=== PATIENT | male | born 1965 | race Caucasian/White ===

== ENCOUNTER 2017-11-02 11:55 | Day surgery (SDC) | payer OTHER ==
[~2017-11-02] VITALS: Ht 175.3 cm; Wt 108.9 kg
[~2017-11-02 11:55] MED LIST: CLIN300C11 PO; DOCU-143 PO; L.AC1CAP6 PO; LIALDA; METR500T PO; OXYC-197 PO; OXYC-471; PRD10T; SULF-222; SULF1TAB35 PO
--- OUTSIDE RECORDS SUMMARY | 2017-11-02 12:01 | XMS REPORT | Continuity of Care Document ---
Author Author [facility] Organization [facility] Address Unknown Phone Unavailable Allergies Active Description Code Type Severity Reaction Onset Reported/Identified Relationship to Patient Clinical Status Yes aspirin [id number] Drug Allergy Unknown N/A 10/01/2006 Medications There is no data. Problems Date Dx Coded Attending Type Code Diagnosis Diagnosed By 09/05/2013 MARY KATE HOOPER MD Ot 721.3 09/05/2013 MARY KATE HOOPER MD Ot 722.52 09/05/2013 MARY KATE HOOPER MD Ot 726.5 09/05/2013 MARY KATE HOOPER MD Ot 756.12 09/05/2013 MARY KATE HOOPER MD Ot V58.69 09/06/2013 MARY KATE HOOPER MD Ot 724.2 09/06/2013 MARY KATE HOOPER MD Ot V57.1 12/01/2015 JUNIOR LEACH Ot F10.10 ALCOHOL ABUSE, UNCOMPLICATED 12/01/2015 JUNIOR LEACH Ot S86.222A LACERAT MUSC/TEND ANT GRP AT LOW LEG LEV 12/01/2015 JUNIOR LEACH Ot W29.3XXA CNTCT W POWERED GARDEN AND OUTDOOR HAND 12/01/2015 JUNIOR LEACH Ot Y90.6 BLOOD ALCOHOL LEVEL OF 120-199 MG/100 ML 12/01/2015 JUNIOR LEACH Ot Y99.8 OTHER EXTERNAL CAUSE STATUS 12/01/2015 JUNIOR LEACH Ot Z23 ENCOUNTER FOR IMMUNIZATION 12/01/2015 Ot 727.09 12/01/2015 TIN COOPER MD Ot 722.52 12/01/2015 TIN COOPER MD Ot 756.12 12/03/2015 JUNIOR LEACH Ot F10.10 12/03/2015 JUNIOR LEACH Ot S86.222A 12/03/2015 JUNIOR LEACH Ot W29.3XXA 12/03/2015 JUNIOR LEACH Ot Y90.6 12/03/2015 JUNIOR LEACH Ot Y99.8 12/03/2015 JUNIOR LEACH Ot Z23 12/11/2015 EZ WHITAKER MD Ot K52.1 12/11/2015 EZ WHITAKER MD Ot K52.1 12/19/2015 EZ WHITAKER MD Ot K52.1 Procedures There is no data. Results There is no data. Encounters ACCT No. Visit Date/Time Discharge Status Pt. Type Provider Facility Loc./Unit Complaint [id number] 12/07/2015 13:44:00 12/07/2015 15:38:00 DIS Emergency EZ WHITAKER MD [facility] ER [id number] 12/01/2015 16:57:00 12/01/2015 21:52:00 DIS Emergency JUNIOR LEACH [facility] ER [id number] 09/06/2013 08:01:00 09/06/2013 09:02:00 DIS Outpatient MARY KATE HOOPER MD [facility] REHAB [id number] 09/05/2013 12:49:00 09/05/2013 14:23:00 DIS Outpatient MARY KATE HOOPER MD [facility] CARD [id number] 07/13/2013 13:36:00 07/13/2013 23:59:59 CLS Outpatient TIN COOPER MD [facility] RAD [id number] 08/10/2012 10:36:00 Document Registration
[2017-11-02] MEDS ORDERED: FAMOTIDINE 20 MG (PEPCID) TABLET PO STA (12:46)
[2017-11-02] MEDS ORDERED: LACTATED RINGERS 1,000 ML IV ONE (12:46)
--- NOTE | 2017-11-02 12:54 | ED Chest Pain ---
General Chief Complaint: Chest Pain Stated Complaint: CHEST PAIN Nursing Triage Note: PT C/O CHEST PAIN X 1 MONTH. HE IS ALSO C/O DIAPHORESIS AND INTERMITTENT DYSPNEA. HE DOES REPORT HX OF ACID REFLUX. Nursing Sepsis Screen: No Definite Risk Source: patient, other Exam Limitations: no limitations History of Present Illness Date Seen by Provider: Nov 02, 2017 Time Seen by Provider: 12:30 Initial Comments Patient presents to the ER by private conveyance with a chief complaint that for the last month he is having intermittent chest pains last for a few minutes at a time on the left side of his chest sometimes radiated to his left armpit and into his left trapezius. He is not having any nausea, chills, fever that he has occasionally had some sweats with him. He has not taken anything for them. He thought they might be acid reflux. He has an allergy to aspirin. He does not have a history personally of heart disease however he has an extensive family history of father and brother having heart attacks right around age 50. 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 He does not have high blood pressure, cholesterol, hypothyroidism, diabetes. Allergies and Home Medications Allergies Coded Allergies: Aspirin (Verified Allergy, Unknown, 10/01/06) Home Medications Clindamycin HCl 300 Mg Capsule, 300 MG PO QID Prescribed by: EZ SILVA on 12/01/152050 Docusate Sodium 100 Mg Capsule, 100 MG PO BID PRN for CONSTIPATION Prescribed by: EZ SILVA on 12/01/152050 L.acidoph & Paracasei,B.lactis 1 Each Capsule, 1 EACH PO TID Prescribed by: EZ SILVA on 12/07/151436 Metronidazole 500 Mg Tablet, 500 MG PO TID Prescribed by: EZ SILVA on 12/07/151436 Oxycodone HCl/Acetaminophen 1 Each Tablet, 1-2 EACH PO Q4H Prescribed by: EZ SILVA on 12/01/152050 Sulfamethoxazole/Trimethoprim 1 Each Tablet, 1 EACH PO BID Prescribed by: EZ SILVA on 12/01/152050 Review of Systems Constitutional: No chills, No diaphoresis, No fever EENTM: No Blurred Vision, No Double Vision Respiratory: Denies Cough, Denies Shortness of Air Cardiovascular: See HPI, Chest Pain, Denies Irregular Heart Rate, Denies Palpitations, Denies Syncope Gastrointestinal: Denies Abdomen Distended Genitourinary: Denies Burning, Denies Discharge Musculoskeletal: No back pain, No joint pain Skin: No pruritus, No rash Psychiatric/Neurological: Denies Headache, Denies Numbness Past Pfltvyv-Hepdwz-Ueyenn Hx Patient Social History Alcohol Use: Occasionally Uses Alcohol Beverage of Choice: Beer (12 pack every 3-4 days) Recreational Drug Use: No Smoking Status: Never a Smoker Type Used: Smokeless Tobacco 2nd Hand Smoke Exposure: No Recent Foreign Travel: No Contact w/Someone Who Travel: No Recent Infectious Disease Expo: No Recent Hopitalizations: No Seasonal Allergies Seasonal Allergies: No Surgeries History of Surgeries: Yes Surgeries: Orthopedic Respiratory History of Respiratory Disorde: No Cardiovascular History of Cardiac Disorders: No Neurological History of Neurological Disord: No Gastrointestinal History of Gastrointestinal Di: Yes Gastrointestinal Disorders: Colitis Musculoskeletal History of Musculoskeletal Dis: Yes (traumatic wound to the left lower extremity from chainsaw) Endocrine History of Endocrine Disorders: No Cancer History of Cancer: No Psychosocial History of Psychiatric Problem: No Physical Exam Vital Signs Vital Signs - First Documented 11/02/17 12:21 Temp 98.1 Pulse 79 Resp 11 B/P (MAP) 138/94 (109) Pulse Ox 97 O2 Delivery Room Air Capillary Refill : Less Than 3 Seconds General Appearance: No Apparent Distress, WD/WN HEENT: PERRL/EOMI, Normal ENT Inspection, Pharynx Normal (oral mucosa is moist) Neck: Full Range of Motion, Non Tender, Supple Respiratory: Chest Non Tender, Lungs Clear, Normal Breath Sounds, No Accessory Muscle Use, No Respiratory Distress Cardiovascular: Regular Rate, Rhythm, No Edema, Normal Peripheral Pulses Gastrointestinal: Normal Bowel Sounds, Non Tender, Soft Extremity: Normal Capillary Refill, Normal Inspection, No Pedal Edema Neurologic/Psychiatric: Alert, Oriented x3 Skin: Normal Color, Warm/Dry Progress/Results/Core Measures Results/Orders Lab Results Laboratory Tests Test 11/02/17 12:10 Range/Units White Blood Count 3.0 L 4.3-11.0 10^3/uL Red Blood Count 3.83 L 4.35-5.85 10^6/uL Hemoglobin 15.4 13.3-17.7 G/DL Hematocrit 40 40-54 % Mean Corpuscular Volume 105 H 80-99 FL Mean Corpuscular Hemoglobin 40 H 25-34 PG Mean Corpuscular Hemoglobin Concent 38 H 32-36 G/DL Red Cell Distribution Width 13.8 10.0-14.5 % Platelet Count 173 130-400 10^3/uL Mean Platelet Volume 8.7 7.4-10.4 FL Neutrophils (%) (Auto) 53 42-75 % Lymphocytes (%) (Auto) 32 12-44 % Monocytes (%) (Auto) 12 0-12 % Eosinophils (%) (Auto) 1 0-10 % Basophils (%) (Auto) 1 0-10 % Neutrophils # (Auto) 1.6 L 1.8-7.8 X 10^3 Lymphocytes # (Auto) 1.0 1.0-4.0 X 10^3 Monocytes # (Auto) 0.4 0.0-1.0 X 10^3 Eosinophils # (Auto) 0.0 0.0-0.3 10^3/uL Basophils # (Auto) 0.0 0.0-0.1 10^3/uL Prothrombin Time 13.7 12.2-14.7 SEC INR Comment 1.0 0.8-1.4 Activated Partial Thromboplast Time 30 24-35 SEC Sodium Level 141 135-145 MMOL/L Potassium Level 4.4 3.6-5.0 MMOL/L Chloride Level 109 H 98-107 MMOL/L Carbon Dioxide Level 21 21-32 MMOL/L Anion Gap 11 5-14 MMOL/L Blood Urea Nitrogen 10 7-18 MG/DL Creatinine 0.97 0.60-1.30 MG/DL Estimat Glomerular Filtration Rate > 60 BUN/Creatinine Ratio 10 Glucose Level 176 H 70-105 MG/DL Calcium Level 9.0 8.5-10.1 MG/DL Magnesium Level 2.1 1.8-2.4 MG/DL Total Bilirubin 0.9 0.1-1.0 MG/DL Aspartate Amino Transf (AST/SGOT) 146 H 5-34 U/L Alanine Aminotransferase (ALT/SGPT) 289 H 0-55 U/L Alkaline Phosphatase 57 40-136 U/L Myoglobin 64.8 10.0-92.0 NG/ML Troponin I < 0.30 <0.30 NG/ML Total Protein 6.9 6.4-8.2 GM/DL Albumin 4.2 3.2-4.5 GM/DL Lipase 51 8-78 U/L My Orders Orders - MISAEL TARANGO Ekg Tracing (11/02/17 12:03) Continuous Ekg Monitoring (11/02/17 12:03) Cbc With Automated Diff (11/02/17 12:46) Magnesium (11/02/17 12:46) Chest 1 View, Ap/Pa Only (11/02/17 12:46) Cardiac Profile 1 (11/02/17 12:46) Comprehensive Metabolic Panel (11/02/17 12:46) Myoglobin Serum (11/02/17 12:46) Protime With Inr (11/02/17 12:46) Partial Thromboplastin Time (11/02/17 12:46) O2 (11/02/17 12:46) Monitor-Rhythm Ecg Trace Only (11/02/17 12:46) Lipid Panel (11/03/17 06:00) Saline Lock/Iv-Start (11/02/17 12:46) Lipase (11/02/17 12:46) Saline Lock/Iv-Start (11/02/17 12:46) Lactated Ringers (Lr 1000 Ml Iv Solution (11/02/17 12:46) Lidocaine 2% Viscous 15 Ml (Xylocaine Vi (11/02/17 13:00) Famotidine Tablet (Pepcid Tablet) (11/02/17 12:46) Antacid Suspension (Mylanta Suspension (11/02/17 13:00) Vital Signs/I&O Vital Sign - Last 12Hours 11/02/17 11/02/17 12:21 12:21 Temp 98.1 Pulse 79 Resp 11 B/P (MAP) 138/94 (109) Pulse Ox 97 O2 Delivery Room Air Room Air Blood Pressure Mean: 109 Progress Note #1: Time: 12:52 Progress Note ED ACS score is 20 which is not low risk and would recommend if the normal troponin and EKG initially present that he should do a serial troponin observation stay. Patient is not having any pain presently so were not given any nitroglycerin. He has an allergy to aspirin. Coronary catheterization by Dr. Lal 2006 showing nonobstructive disease of the coronaries. Normal left ventricular size and systolic function with an EF of 60% Echocardiogram from [address] Lal reveals normal left ventricular size and systolic function with an EF of 60%. Trace your dictation of the tricuspid with an estimated pulmonary artery pressure of 15-20 mmHg. Progress Note #2: Time: 13:49 Progress Note Elevated glucose told to question the possibility of diabetes. Elevated transaminases may relate to liver disease. Considering he admits to drinking a 12 pack every 3-4 days could be alcohol related versus diabetes versus chronic viral however probably does not directly relate to his current symptoms. ECG Initial ECG Impression Date: Nov 02, 2017 Initial ECG Impression Time: 12:05 Initial ECG Rate: 77 Initial ECG Rhythm: Normal Sinus Initial ECG Intervals: QRS (140) Initial ECG Impression: Normal, Nonspecific Changes (rbbb) Diagnostic Imaging Diagonstic Imaging: Xray Plain Films/CT/US/NM/MRI: chest (1v) [facility] [place], [place] NAME: SAMIR CAMPOS [facility] REC#: [id number] PT STATUS: REG ER : 1965 PHYSICIAN: MISAEL TARANGO MD ADMIT DATE: 11/02/17/ER Draft Date of Exam:11/02/17 CHEST 1 VIEW, AP/PA ONLY INDICATION: Chest pain. COMPARISON: None. FINDINGS: Single frontal view of the chest demonstrates normal heart size and pulmonary vascularity. The lungs show low inspiratory volumes, but are otherwise clear. No large pleural effusion or pneumothorax is seen. The visualized osseous structures show no acute abnormalities. IMPRESSION: 1. Low lung volumes, but otherwise no acute cardiopulmonary process. Dictated on workstation # [id number] Dict: 11/02/17 1304 Trans: 11/02/17 1315 SUNNY [id number] Interpreted by: NENA LENTZ MD Electronically signed by: Reviewed: Reviewed by Me Departure Communication (Admissions) Time/Spoke to Admitting Phy: 13:[address] Seymour; discussed case lab imaging findings possibility of diabetes and elevated transaminases may be related to his ulcerative colitis medicine versus alcohol versus diabetes versus other. Discussed observation stay for chest pain and cardiac risk factors. Time/Spoke to Consulting Phy: 14:00 Communication/Consulting Dr. Valera; discussed case lab imaging EKG and findings. Plan to do an observation stay. His risk factors. He agrees and will see the patient. He recommends Toprol-XL 50 mg daily. Impression Impression: Primary Impression: Chest pain Qualified Codes: R07.9 - Chest pain, unspecified Additional Impressions: Elevated transaminase level Hyperglycemia Disposition: ADMITTED INPATIENT Condition: Stable Admissions Decision to Admit Reason: Admit from ER (General) Decision to Admit/Date: Nov 02, 2017 Time/Decision to Admit Time: 12:56 Departure-Patient Inst. Referrals: TIN COOPER MD (PCP/Family) Primary Care Physician Copy Copies To 1: CARMINE GOLDBERG MD FACP FACC CCDS; TIN COOPER MD, TITUS J Nov 02, 2017 12:54
[2017-11-02 12:55] LABS: BASOPHILS % (AUTO) 1 % (0-10); EOSINOPHILS % (AUTO) 1 % (0-10); HEMATOCRIT 40 % (40-54); HEMOGLOBIN 15.4 G/DL (13.3-17.7); LYMPHOCYTES % (AUTO) 32 % (12-44); MEAN CORPUSCULAR HEMOGLOBIN 40 PG (25-34); MEAN CORPUSCULAR HGB CONC 38 G/DL (32-36); MEAN CORPUSCULAR VOLUME 105 FL (80-99); MEAN PLATELET VOLUME 8.7 FL (7.4-10.4); MONOCYTES # (AUTO) 0.4 X 10^3 (0.0-1.0); MONOCYTES % (AUTO) 12 % (0-12); NEUTROPHILS # (AUTO) 1.6 X 10^3 (1.8-7.8); NEUTROPHILS % (AUTO) 53 % (42-75); PLATELET COUNT 173 10^3/uL (130-400); RED BLOOD COUNT 3.83 10^6/uL (4.35-5.85); RED CELL DISTRIBUTION WIDTH 13.8 % (10.0-14.5)
[2017-11-02] MEDS ORDERED: LIDOCAINE 2% VISCOUS 15 ML UDC PO ONE (13:00)
[2017-11-02] MEDS ORDERED: ANTACID SUSP 30 ML UDC (MYLANTA) PO ONE (13:00)
[2017-11-02 13:01] LABS: PROTHROMBIN TIME PATIENT 13.7 SEC (12.2-14.7)
[2017-11-02 13:09] LABS: ALANINE AMINOTRANSFERASE 289 U/L (0-55); ALBUMIN 4.2 GM/DL (3.2-4.5); ALKALINE PHOSPHATASE 57 U/L (40-136); BILIRUBIN,TOTAL 0.9 MG/DL (0.1-1.0); BUN/CREATININE RATIO 10; CARBON DIOXIDE 21 MMOL/L (21-32); CHLORIDE 109 MMOL/L (98-107); CREATININE SERUM 0.97 MG/DL (0.60-1.30); GFR ESTIMATED > 60; GLUCOSE 176 MG/DL (70-105); LIPASE 51 U/L (8-78); MAGNESIUM 2.1 MG/DL (1.8-2.4); POTASSIUM 4.4 MMOL/L (3.6-5.0); SODIUM 141 MMOL/L (135-145); TOTAL PROTEIN 6.9 GM/DL (6.4-8.2)
[2017-11-02 13:15] LABS: MYOGLOBIN SERUM 64.8 NG/ML (10.0-92.0)
--- NOTE | 2017-11-02 13:16 | Diagnostic Imaging Report ---
INDICATION: Chest pain. COMPARISON: None. FINDINGS: Single frontal view of the chest demonstrates normal heart size and pulmonary vascularity. The lungs show low inspiratory volumes, but are otherwise clear. No large pleural effusion or pneumothorax is seen. The visualized osseous structures show no acute abnormalities. IMPRESSION: 1. Low lung volumes, but otherwise no acute cardiopulmonary process. Dictated by: Dictated on workstation # [id number]
[2017-11-02] MEDS ORDERED: meTOproloL SUCCINATE 50 MG (TOPROL XL) TAB PO SCH (14:15)
--- OUTSIDE RECORDS SUMMARY | 2017-11-02 14:16 | XMS REPORT | Continuity of Care Document ---
Author Author [facility] Organization [facility] Address Unknown Phone Unavailable Allergies Active Description Code Type Severity Reaction Onset Reported/Identified Relationship to Patient Clinical Status Yes aspirin [id number] Drug Allergy Unknown N/A 10/01/2006 Medications There [...] 12/03/2015 JUNIOR LEACH Ot S86.222A 12/03/2015 JUNIOR ELACH Ot W29.3XXA 12/03/2015 JUNIOR LEACH Ot Y90.6 12/03/2015 JENNIFER LEACHEN Tisha Ot Y99.8 12/03/2015 JENNIFER LEACHEN Tisha Ot Z23 12/11/2015 SHERMAN ROCK, EZ Magallon Ot K52.1 12/11/2015 SHERMAN ROCK, EZ Magallon Ot K52.1 12/19/2015 SHERMAN ROCK, EZ Magallon Ot K52.1 Procedures There is no data. Results Test Result Range Complete blood count (CBC) with automated white blood cell (WBC) differential - 11/02/17 12:10 Blood leukocytes automated count (number/volume) 3.0 10*3/uL 4.3-11.0 Blood erythrocytes automated count (number/volume) 3.83 10*6/uL 4.35-5.85 Venous blood hemoglobin measurement (mass/volume) 15.4 g/dL 13.3-17.7 Blood hematocrit (volume fraction) 40 % 40-54 Automated erythrocyte mean corpuscular volume 105 [foz_us] 80-99 Automated erythrocyte mean corpuscular hemoglobin (mass per erythrocyte) 40 pg 25-34 Automated erythrocyte mean corpuscular hemoglobin concentration measurement ( mass/volume) 38 g/dL 32-36 Automated erythrocyte distribution width ratio 13.8 % 10.0-14.5 Automated blood platelet count (count/volume) 173 10*3/uL 130-400 Automated blood platelet mean volume measurement 8.7 [foz_us] 7.4-10.4 Automated blood neutrophils/100 leukocytes 53 % 42-75 Automated blood lymphocytes/100 leukocytes 32 % 12-44 Blood monocytes/100 leukocytes 12 % 0-12 Automated blood eosinophils/100 leukocytes 1 % 0-10 Automated blood basophils/100 leukocytes 1 % 0-10 Blood neutrophils automated count (number/volume) 1.6 10*3 1.8-7.8 Blood lymphocytes automated count (number/volume) 1.0 10*3 1.0-4.0 Blood monocytes automated count (number/volume) 0.4 10*3 0.0-1.0 Automated eosinophil count 0.0 10*3/uL 0.0-0.3 Automated blood basophil count (count/volume) 0.0 10*3/uL 0.0-0.1 PT panel in platelet poor plasma by coagulation assay - 11/02/17 12:10 Prothrombin time (PT) in platelet poor plasma by coagulation assay 13.7 s 12.2-14.7 INR in platelet poor plasma or blood by coagulation assay 1.0 0.8-1.4 Activated partial thromboplastin time (aPTT) in platelet poor plasma bycoagulation assay - 11/02/17 12:10 Activated partial thromboplastin time (aPTT) in platelet poor plasma bycoagulation assay 30 s 24-35 Comprehensive metabolic panel - 11/02/17 12:10 Serum or plasma sodium measurement (moles/volume) 141 mmol/L 135-145 Serum or plasma potassium measurement (moles/volume) 4.4 mmol/L 3.6-5.0 Serum or plasma chloride measurement (moles/volume) 109 mmol/L 98-107 Carbon dioxide 21 mmol/L 21-32 Serum or plasma anion gap determination (moles/volume) 11 mmol/L 5-14 Serum or plasma urea nitrogen measurement (mass/volume) 10 mg/dL 7-18 Serum or plasma creatinine measurement (mass/volume) 0.97 mg/dL 0.60-1.30 Serum or plasma urea nitrogen/creatinine mass ratio 10 NRG Serum or plasma creatinine measurement with calculation of estimated glomerular filtration rate > NRG Serum or plasma glucose measurement (mass/volume) 176 mg/dL 70-105 Serum or plasma calcium measurement (mass/volume) 9.0 mg/dL 8.5-10.1 Serum or plasma total bilirubin measurement (mass/volume) 0.9 mg/dL 0.1-1.0 Serum or plasma alkaline phosphatase measurement (enzymatic activity/volume) 57 U/L 40-136 Serum or plasma aspartate aminotransferase measurement (enzymatic activity/ volume) 146 U/L 5-34 Serum or plasma alanine aminotransferase measurement (enzymatic activity/volume ) 289 U/L 0-55 Serum or plasma protein measurement (mass/volume) 6.9 g/dL 6.4-8.2 Serum or plasma albumin measurement (mass/volume) 4.2 g/dL 3.2-4.5 Magnesium - 11/02/17 12:10 Magnesium 2.1 mg/dL 1.8-2.4 Serum or plasma troponin i.cardiac measurement (mass/volume) - 11/02/17 12:10 Serum or plasma troponin i.cardiac measurement (mass/volume) < ng/ mL <0.30 Myoglobin, serum - 11/02/17 12:10 Myoglobin, serum 64.8 ng/mL 10.0-92.0 Lipase - 11/02/17 12:10 Lipase 51 U/L 8-78 Encounters ACCT No. Visit Date/Time Discharge Status Pt. Type Provider Facility Loc./Unit Complaint [id number] 12/07/2015 13:44:00 12/07/2015 15:38:00 DIS Emergency SHERMAN ROCK, EZ Magallon [facility] ER [id number] 12/01/2015 16:57:00 12/01/2015 21:52:00 DIS Emergency JUNIOR LEACH [facility] ER [id number] 09/06/2013 08:01:00 09/06/2013 09:02:00 DIS Outpatient MARY KATE HOOPER MD [facility] REHAB [id number] 09/05/2013 12:49:00 09/05/2013 14:23:00 DIS Outpatient MARY KATE HOOPER MD [facility] CARD [id number] 07/13/2013 13:36:00 07/13/2013 23:59:59 CLS Outpatient KENNETH ROCK, TIN Lozano [facility] RAD [id number] 11/02/2017 12:56:00 Document Registration [id number] 08/10/2012 10:36:00 Document Registration
--- NOTE | 2017-11-02 15:09 | History & Physical-Hospitalist ---
HPI History of Present Illness: HPI/Chief Complaint Pt is a 52yoCM with a PMH of ulcerative colitis who presents to the ER with CC of chest pain. He reports his symptoms started 1 month ago and he thought he had pulled a muscle. He has central chest pain that lasts a few minutes and will recur 3-5x throughout the day. He denies any SOB, nausea, diaphoresis, or radiation of the pain during these episodes. He reports they come on randomly and are no associated with exertion. He felt it may be due to heart burn. Nothing worsened today he just told his how long his pain had been occurring and she prompted him to seek evaluation in the ER. Source: patient Date Seen 11/02/17 Time Seen by Provider: 14:50 Attending Physician Roxanna Seymour MD PCP Moises Crowell MD Referring Physician Date of Admission Nov 02, 2017 at 14:05 Home Medications & Allergies Home Medications Reviewed patient Home Medication Reconciliation Form Allergies Allergies Coded Allergies aspirin (Verified Allergy, Unknown, 10/01/06) Past Hdymivg-Uqyvzs-Yyxdxh Hx Patient Social History Marrital Status: Employed/Student: employed Alcohol Use: Occasionally Uses Alcohol Beverage of Choice: Beer (12 pack per day when not working) Recreational Drug Use: No Smoking Status: Never a Smoker Type Used: Smokeless Tobacco 2nd Hand Smoke Exposure: No Recent Foreign Travel: No Contact w/other who traveled: No Recent Hopitalizations: No Recent Infectious Disease Expo: No Seasonal Allergies Seasonal Allergies: No Surgeries Yes Orthopedic Respiratory No Cardiovascular No Neurological No Gastrointestinal Yes Colitis (ulcerative colitis) Musculoskeletal Yes (traumatic wound to the left lower extremity from chainsaw) Endocrine History of Endocrine Disorders: No HEENT History of HEENT Disorders: No Cancer No Psychosocial History of Psychiatric Problem: No Family Medical History Significant Family History: Heart Disease, CAD Under 55 Years Old, CAD Over 55 Years Old, Hypertension Review of Systems Constitutional: No chills, No fever EENTM: No blurred vision, No double vision, No nose congestion, No throat pain Respiratory: No cough, No dyspnea on exertion, No short of breath Cardiovascular: chest pain, No edema, No Hx of Intervention, No palpitations, No syncope Gastrointestinal: No abdominal pain, No constipation, No diarrhea, No nausea, No vomiting Genitourinary: No dysuria, No frequency Musculoskeletal: No joint pain, No muscle pain Skin: No lesions, No rash Psychiatric/Neurological: Denies Anxiety, Denies Depressed, Denies Headache, Denies Numbness, Denies Tingling Physical Exam Physical Exam Vital Signs Vital Signs - First Documented 11/02/17 11/02/17 12:21 13:10 Temp 98.1 Pulse 79 Resp 11 B/P (MAP) 138/94 (109) Pulse Ox 97 O2 Delivery Room Air O2 Flow Rate 2.00 Capillary Refill : Less Than 3 Seconds General Appearance: No Apparent Distress, WD/WN, Obese HEENT: PERRL/EOMI, Moist Mucous Membranes, No Scleral Icterus (L), No Scleral Icterus (R) Neck: Non Tender, Supple Respiratory: Lungs Clear, No Respiratory Distress Cardiovascular: Regular Rate, Rhythm, No Murmur Gastrointestinal: Normal Bowel Sounds, Non Tender, Soft Extremity: Normal Capillary Refill, No Calf Tenderness Neurologic/Psychiatric: Alert, Oriented x3, Normal Mood/Affect Skin: Normal Color, Warm/Dry Results Results/Procedures Lab Laboratory Tests 11/02/17 12:10 Assessment/Plan Admission Diagnosis chest pain Admission Status: Observation Diagnosis/Problems Diagnosis/Problems (1) Chest pain Status: Acute Assessment & Plan: Will admit for obs for ACS rule out Troponin negative Will trend Monitor on Tele Has ASA allergy so unable to give Cardiology consulted, appreciate recs FLP ordered Qualifiers: Qualified Codes: R07.9 - Chest pain, unspecified (2) Alcohol abuse Assessment & Plan: Drinks 12pack per day when not working Can go 3-5 days without drinking without withdrawal (3) Tobacco use disorder Assessment & Plan: Chews tobacco Recommended cessation (4) Elevated transaminase level Status: Acute Assessment & Plan: Likely due to alcohol abuse will trend (5) Hyperglycemia Status: Acute Assessment & Plan: Trend, no known diagnosis of diabetes Will check a1c Clinical Quality Measures AMI/AHF: ASA po Prior to arrival: ROXANNA Gongora MD Nov 02, 2017 3:09 pm
[2017-11-02 15:14] VITALS: BP 147/71
[2017-11-02] MEDS ORDERED: NITROGLYCERIN 0.4 MG SL TABS BTL 25'S SL PRN (15:15)
[2017-11-02] MEDS ORDERED: CATHETER FLUSH 10 ML SYR IV PRN (15:15)
[2017-11-02 15:55] LABS: CHOLESTEROL 239 MG/DL (< 200); HDL CHOLESTEROL 45 MG/DL (40-60); TRIGLYCERIDES 205 MG/DL (<150); VLDL CHOLESTEROL 41 MG/DL (5-40)
[2017-11-02] MEDS ORDERED: INFLUENZA TRIvalent 2017-2018 0.5 ML/45 MCG SYR IM ONE (16:00)
[2017-11-02] MEDS: inSUlin ASPART (NovoLOG) 1 UNIT/0.01 ML (CHARGE PER UNIT) SC SCH ×2 (16:05→20:48)
[2017-11-02] MEDS: lisINopril 5 MG (PRINIVIL) TABLET PO SCH (16:05)
--- NOTE | 2017-11-02 18:06 | Consultation-Cardiology ---
HPI-Cardiology Cardiology Consultation: Date of Consultation 11/02/17 Time Seen by Provider: 18:00 Date of Admission Attending Physician Carolina Seymour MD Admitting Physician Moises Crowell MD Consulting Physician CARMINE GOLDBERG MD, MA, FACP, FACC, FSCAI, CCDS HPI: Chief Complaint: Chest discomfort HPI 52 yo man with chest discomfort: Onset: 1-2 months Location: L parasternum Radiation: none Frequency: Daily Duration of symptoms: a few min Correlation with exertion: none Aggravating or relieving factors: none Character of discomfort: sharp Intensity of discomfort: mild to mod Denies palp or syncope or shortness of breath or leg swelling Review of Systems-Cardiology Review of Systems Constitutional: No malaise, No weight loss, No weight gain Eyes: No vision change Ears/Nose/Throat: No epistaxis, No nasal drainage, No recent hearing loss Respiratory: As described under HPI Cardiovascular: As described under HPI Gastrointestinal: No constipation, No diarrhea, No nausea, No vomiting Genitourinary: No dysuria, No hematuria, No urine frequency changes Musculoskeletal: No back pain Skin: No rash, No ulcerations Psychiatric/Neurological: No seizure, No focal weakness Hematologic: No bleeding abnormalities [id number] Hx Patient Social History Marrital Status: Employed/Student: employed Alcohol Use: Regular Use Recreational Drug Use: No Smoking Status: Never a Smoker Type Used: Smokeless Tobacco 2nd Hand Smoke Exposure: No Recent Foreign Travel: No Recent Infectious Disease Expo: No Hospitalization with Isolation: Denies Physical Abuse Screen: No Sexual Abuse: No Past Medical History PMH As described under Assessment. Family Medical History Family Medical History: Brother had a coronary stent in his ray 50s Family History: Arthritis Cardiovascular disease Hypertension Myocardial infarction Respiratory disorder Allergies and Home Medications Allergies Coded Allergies: aspirin (Verified Allergy, Unknown, 10/01/06) Home Medications Clindamycin HCl 300 Mg Capsule, 300 MG PO QID Prescribed by: EZ SILVA on 12/01/152050 Docusate Sodium 100 Mg Capsule, 100 MG PO BID PRN for CONSTIPATION Prescribed by: EZ SILVA on 12/01/152050 L.acidoph & Paracasei,B.lactis 1 Each Capsule, 1 EACH PO TID Prescribed by: EZ SILVA on 12/07/15 1437 Metronidazole 500 Mg Tablet, 500 MG PO TID Prescribed by: EZ SILVA on 12/07/151436 Oxycodone HCl/Acetaminophen 1 Each Tablet, 1-2 EACH PO Q4H Prescribed by: EZ SILVA on 12/01/152050 Sulfamethoxazole/Trimethoprim 1 Each Tablet, 1 EACH PO BID Prescribed by: EZ SILVA on 12/01/152050 Physical Exam-Cardiology Physical Exam Vital Signs/I&O Vital Sign - Last 12Hours 11/02/17 11/02/17 11/02/17 11/02/17 12:21 12:21 13:10 15:14 Temp 98.1 99.0 Pulse 79 62 Resp 11 20 B/P (MAP) 138/94 (109) 147/71 (96) Pulse Ox 97 98 98 O2 Delivery Room Air Room Air Nasal Cannula Room Air O2 Flow Rate 2.00 11/02/17 16:53 Pulse Ox 96 O2 Delivery Room Air Capillary Refill : Less Than 3 Seconds Constitutional: AAO x 3, well-developed, well-nourished HEENT: oral hygience is good, No xanthelasmas are seen Neck: No carotid bruit, carotid pulses are 2 + bilaterally, with good upstrokes Respiratory: No accessory muscle use, lungs clear to percussion, lungs clear to auscultation Cardiovascular: regular rate-rhythm, S1 and S2, systolic murmur (faint JAILENE at card base) Gastrointestinal: No tender, soft, No guarding, No rebound, audible bowel sounds Extremities: No clubbing, No cyanosis, No significant edema Skin: No rash on exposed areas, No ulcerations on exposed areas Data Review Labs Laboratory Tests 11/02/17 12:10: White Blood Count 3.0L, Red Blood Count 3.83L, Hemoglobin 15.4, Hematocrit 40, Mean Corpuscular Volume 105H, Mean Corpuscular Hemoglobin 40H, Mean Corpuscular Hemoglobin Concent 38H, Red Cell Distribution Width 13.8, Platelet Count 173, Mean Platelet Volume 8.7, Neutrophils (%) (Auto) 53, Lymphocytes (%) (Auto) 32, Monocytes (%) (Auto) 12, Eosinophils (%) (Auto) 1, Basophils (%) (Auto) 1, Neutrophils # (Auto) 1.6L, Lymphocytes # (Auto) 1.0, Monocytes # (Auto) 0.4, Eosinophils # (Auto) 0.0, Basophils # (Auto) 0.0, Prothrombin Time 13.7, INR Comment 1.0, Activated Partial Thromboplast Time 30, Sodium Level 141, Potassium Level 4.4, Chloride Level 109H, Carbon Dioxide Level 21, Anion Gap 11 , Blood Urea Nitrogen 10, Creatinine 0.97, Estimat Glomerular Filtration Rate > 60, BUN/Creatinine Ratio 10, Glucose Level 176H, Calcium Level 9.0, Magnesium Level 2.1, Total Bilirubin 0.9, Aspartate Amino Transf (AST/SGOT) 146H, Alanine Aminotransferase (ALT/SGPT) 289H, Alkaline Phosphatase 57, Myoglobin 64.8, Troponin I < 0.30, Total Protein 6.9, Albumin 4.2, Triglycerides Level 205H, Cholesterol Level 239H, LDL Cholesterol Direct 149H, VLDL Cholesterol 41H, HDL Cholesterol 45, Lipase 51 11/02/17 16:04: Glucometer 119H 11/02/17 17:50: Laboratory Tests 11/02/17 12:10 A/P-Cardiology Assessment/Admission Diagnosis Nonspecific chest discomfort Hyperglycemia (nonfasting) Obesity with BMI approx 35 Fam h/o early CAD Mild leucopenia Admission Status: Observation Discussion and Recomendations * Given nonspecific symptoms in the presence of multiple cor risk factors, we recommend MPI for cor risk strat and echo to eval for structural heart disease * We will base further recs on the results of above studies * Eval of leucopenia and hyperglycemia is with the [facility] Clinical Quality Measures AMI/AHF: ASA po Prior to arrival: CARMINE Mcdonald MD FACP FAC CCDS Nov 02, 2017 18:06
[2017-11-02 20:00] VITALS: BP 136/84
[2017-11-02] MEDS: CATHETER FLUSH 10 ML SYR IV SCH (20:47)
[2017-11-02] MEDS ORDERED: ATORVASTATIN 40 MG (LIPITOR) TABLET PO SCH (21:00)
[2017-11-03] VITALS (7 sets, daily range): BP systolic 102–133; BP diastolic 52–83
[2017-11-03] MEDS: inSUlin ASPART (NovoLOG) 1 UNIT/0.01 ML (CHARGE PER UNIT) SC SCH ×4 (05:18→21:15)
[2017-11-03] MEDS: CATHETER FLUSH 10 ML SYR IV SCH ×3 (05:18→21:38)
[2017-11-03 06:49] LABS: BASOPHILS % (AUTO) 1 % (0-10); EOSINOPHILS # (AUTO) 0.1 10^3/uL (0.0-0.3); EOSINOPHILS % (AUTO) 2 % (0-10); HEMATOCRIT 39 % (40-54); HEMOGLOBIN 14.8 G/DL (13.3-17.7); LYMPHOCYTES # (AUTO) 1.4 X 10^3 (1.0-4.0); LYMPHOCYTES % (AUTO) 42 % (12-44); MEAN CORPUSCULAR HEMOGLOBIN 40 PG (25-34); MEAN CORPUSCULAR HGB CONC 38 G/DL (32-36); MEAN CORPUSCULAR VOLUME 106 FL (80-99); MEAN PLATELET VOLUME 8.9 FL (7.4-10.4); MONOCYTES # (AUTO) 0.5 X 10^3 (0.0-1.0); MONOCYTES % (AUTO) 15 % (0-12); NEUTROPHILS # (AUTO) 1.4 X 10^3 (1.8-7.8); NEUTROPHILS % (AUTO) 41 % (42-75); PLATELET COUNT 163 10^3/uL (130-400); RED BLOOD COUNT 3.71 10^6/uL (4.35-5.85); RED CELL DISTRIBUTION WIDTH 13.8 % (10.0-14.5); WHITE BLOOD COUNT 3.4 10^3/uL (4.3-11.0)
[2017-11-03 07:11] LABS: ALANINE AMINOTRANSFERASE 192 U/L (0-55); ALBUMIN 3.7 GM/DL (3.2-4.5); ALKALINE PHOSPHATASE 52 U/L (40-136); BILIRUBIN,TOTAL 0.8 MG/DL (0.1-1.0); BUN/CREATININE RATIO 15; CALCIUM 8.8 MG/DL (8.5-10.1); CARBON DIOXIDE 24 MMOL/L (21-32); CHLORIDE 108 MMOL/L (98-107); CHOLESTEROL 208 MG/DL (< 200); CREATININE SERUM 0.84 MG/DL (0.60-1.30); GFR ESTIMATED > 60; GLUCOSE 122 MG/DL (70-105); HDL CHOLESTEROL 42 MG/DL (40-60); POTASSIUM 3.9 MMOL/L (3.6-5.0); SODIUM 141 MMOL/L (135-145); TRIGLYCERIDES 178 MG/DL (<150); VLDL CHOLESTEROL 36 MG/DL (5-40)
[2017-11-03] MEDS: lisINopril 5 MG (PRINIVIL) TABLET PO SCH (08:23)
--- NOTE | 2017-11-03 08:42 | Progress Note-Cardiology ---
Cardiology SOAP Progress Note Subjective: Continues to c/o episodes (2 episode last noc) of left sided chest pain which radiates to his left side. No c/o dyspnea, palpitations, syncope or near syncope. Objective: I&O/Vital Signs Vital Sign - Last 12Hours 11/03/17 11/03/17 11/03/17 11/03/17 07:00 08:00 08:10 12:00 Temp 97.4 97.5 Pulse 59 89 58 Resp 20 18 B/P (MAP) 133/82 (99) 131/83 (99) Pulse Ox 98 95 95 O2 Delivery Room Air Room Air Room Air 11/03/17 11/03/17 13:00 16:00 Temp 98.7 Pulse 57 60 Resp 20 B/P (MAP) 131/69 (89) Pulse Ox 96 O2 Delivery Room Air Intake and Output 11/03/17 00:00 Intake Total 1600 ml Balance 1600 ml Weight (Pounds): 240 Weight (Ounces): 0.0 Weight (Calculated Kilograms): 108.464596 Constitutional: AAO x 3, well-developed, well-nourished Respiratory: No accessory muscle use, lungs clear to percussion, lungs clear to auscultation Cardiovascular: regular rate-rhythm, S1 and S2, systolic murmur (faint JAILENE at card base) Gastrointestional: No tender, soft, No guarding, No rebound, audible bowel sounds Extremities: No clubbing, No cyanosis, No significant edema Skin: No rash on exposed areas, No ulcerations on exposed areas Results/Procedures: Labs Laboratory Tests 11/02/17 17:50: Troponin I < 0.30 11/02/17 20:48: Glucometer 121H 11/02/17 23:55: Troponin I < 0.30 11/03/17 05:08: Glucometer 116H 11/03/17 05:35: White Blood Count 3.4L, Red Blood Count 3.71L, Hemoglobin 14.8, Hematocrit 39L, Mean Corpuscular Volume 106H, Mean Corpuscular Hemoglobin 40H, Mean Corpuscular Hemoglobin Concent 38H, Red Cell Distribution Width 13.8, Platelet Count 163, Mean Platelet Volume 8.9, Neutrophils (%) (Auto) 41L, Lymphocytes (%) (Auto) 42 , Monocytes (%) (Auto) 15H, Eosinophils (%) (Auto) 2, Basophils (%) (Auto) 1, Neutrophils # (Auto) 1.4L, Lymphocytes # (Auto) 1.4, Monocytes # (Auto) 0.5, Eosinophils # (Auto) 0.1, Basophils # (Auto) 0.0, Sodium Level 141, Potassium Level 3.9, Chloride Level 108H, Carbon Dioxide Level 24, Anion Gap 9, Blood Urea Nitrogen 13, Creatinine 0.84, Estimat Glomerular Filtration Rate > 60, BUN/ Creatinine Ratio 15, Glucose Level 122H, Calcium Level 8.8, Total Bilirubin 0.8 , Aspartate Amino Transf (AST/SGOT) 74H, Alanine Aminotransferase (ALT/SGPT) 192H, Alkaline Phosphatase 52, Total Protein 6.0L, Albumin 3.7, Triglycerides Level 178H, Cholesterol Level 208H, LDL Cholesterol Direct 133H, VLDL Cholesterol 36, HDL Cholesterol 42, Thyroid Stimulating Hormone (TSH) 3.03 11/03/17 11:08: Glucometer 165H 11/03/17 16:12: Glucometer 115H A/P: Assessment: Continuing, intermittent chest discomfort Hyperglycemia (nonfasting) Obesity with BMI approx 35 Elevated liver enzymes, likely related to heavy alcohol consumption (12-pack or more every other or every third day) RBBB No evidence of cor ischemia on MPI of 11/02/17 and normal LVEF Fam h/o early CAD Mild leucopenia Hypokalemia H/O ulcerative colitis [place] [address] Mondragon Plan: * Given nonspecific symptoms in the presence of multiple cor risk factors, we recommend MPI for cor risk strat and echo to eval for structural heart disease - results pending * We will base further recs on the results of above studies * Eval of leucopenia and hyperglycemia is with the Med S[facility] * Elevated liver enzymes * Hold statin tx for now * Hypokalemia - replace Physician Assessment Physician Assessment Continues to have intermittent chest pain, now some episodes midsternal. No palp or syncope or shortness of breath Lungs: good bilat air entry Cor: reg Ext: no c/c/e A&R * As documented in our note above that I updated (italics) at the time of this writing * Management relatively complex. Even though MPI doesn't show any distinct ischemia, he has multiple risk factors and is continuing to have symptoms. Under these circumstances, card cath appears appropriate. I discussed this with him, including pros and cons of cath and possible ad hoc cor intervention. He understands and provides consent. We have scheduled for tomorrow. Will proceed earlier if needed * We recommend immediate and complete cessation of alcohol use. Liver enz elev is likely related to heavy alcohol use and/or fatty liver. Until improvement of transaminases, statin would be held * I discussed his case in detail with Dr Jaramillo of the [facility] today Clinical Quality Measures AMI/AHF: ASA po Prior to arrival: CHESTER Sumner CHILD AND FAMILY COUNSELOR Nov 03, 2017 08:42 CARMINE GOLDBERG MD FACP [facility] CCDS Nov 03, 2017 17:44
[2017-11-03] MEDS ORDERED: REGADENOSON 0.4 MG/5 ML SYR (LEXISCAN) IV ONE ×2 (08:51→09:45)
[2017-11-03] MEDS ORDERED: meTOproloL SUCCINATE 50 MG (TOPROL XL) TAB PO SCH (09:00)
[2017-11-03] MEDS ORDERED: ASPIRIN 81 MG CHEW (CHILDREN'S ASA) PO SCH (09:00)
[2017-11-03] MEDS ORDERED: MERC50TA PO (09:32)
[2017-11-03] MEDS ORDERED: KCL 20 MEQ TAB (K-DUR) PO NR (10:15)
[2017-11-03] MEDS: meTOproloL SUCCINATE 50 MG (TOPROL XL) TAB PO SCH (10:55)
--- NOTE | 2017-11-03 16:07 | Progress Note-Hospitalist ---
Standard Progress Note Progress Notes/Assess & Plan Date Seen 11/03/17 Time Seen by Provider: 16:02 Diagnosis chest pain Assess & Plan/Chief Complaint The patient is a 52-year-old white male admitted after he presented to the emergency room with a complaint of chest pain. He is had multiple episodes of this over the past month or so. He does not directly tied to exercise may recur several times during the day. 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 He has had ulcerative colitis for the past 20 years and originally took Azo call more recently he has been taking 6- mercaptopurine. He has a strong family history with a heart attack in his father at age 52. His younger brother recently had stenting. Multiple uncles have had coronary artery disease and intervention as well. It is noted that his white count was 3000 at admission and 3400 today. Macrocytes are noted. I found a 2017 CBC which also showed white count in the 4000 range. His LDL was 133. He was asked about taking cholesterol medicine which he said he did not however his med rec list includes atorvastatin. His AST at admission was 146 ALT 289. Today respectively those are 74 and 192. Cardiology has held the Lipitor. He appears to be diabetic as well. Physical exam: He is obese with considerable central obesity. Lungs are clear to auscultation. CV is regular. Extremities show no pedal edema. Impression: Intermittent chest pain with strong family history. Multiple risk factors are noted. 2.inflammatory bowel disease. 3.hepatitis suspect statin. 4.relative granulocytopenia suspect 6 mercaptopurine. Labs Laboratory Tests 11/02/17 12:10 11/03/17 05:35 VARINDER MARTINI MD Nov 03, 2017 16:07
[2017-11-03] MEDS ORDERED: CLOPIDOGREL 75 MG (PLAVIX) TABLET PO NR (18:00)
--- NOTE | 2017-11-03 18:09 | STRESS TEST ---
DATE OF SERVICE: 11/02/2017 RESTING AND POST REGADENOSON TECHNETIUM-99M TETROFOSMIN SPECT CT IMAGING ORDERING PHYSICIAN: Dr. Basilio. PRIMARY CARE PHYSICIAN: Dr. Crowell. ATTENDING PHYSICIAN: Dr. Castano. CLINICAL DIAGNOSIS: Chest discomfort. Baseline images were carried out after injection of 10.97 mCi of technetium-99m tetrofosmin. This was followed by 0.4 mg of regadenoson and 28.2 mCi of technetium-99m tetrofosmin for stress imaging. The electrocardiogram showed sinus rhythm with right bundle branch block. The electrocardiogram did not change significantly with the regadenoson infusion. He tolerated the procedure well. Review of images at rest and following stress does not indicate any significant perfusion defects consistent with significant myocardial ischemia or infarction. Gated images show normal global left ventricular systolic function with normal regional wall motion. Left ventricular ejection fraction is calculated to be 57%. Left ventricular end diastolic volume is 109 mL. TID is absent (1.09). CONCLUSIONS: 1. No evidence of any significant myocardial ischemia or infarction on this study. 2. Normal regional wall motion. 3. Normal global left ventricular systolic function with a calculated ejection fraction of 57%. 4. Right bundle branch block. Job ID: [id number] DocumentID: [id number] Dictated Date: 11/03/2017 15:55:21 Nascar Racer Date: 11/03/2017 18:08:54 Dictated By: CARMINE BASILIO MD, MA, FACP, FACC,
[2017-11-04] VITALS (9 sets, daily range): BP systolic 95–139; BP diastolic 57–77
[2017-11-04] MEDS: inSUlin ASPART (NovoLOG) 1 UNIT/0.01 ML (CHARGE PER UNIT) SC SCH ×3 (05:15→16:35)
[2017-11-04] MEDS: CATHETER FLUSH 10 ML SYR IV SCH ×3 (05:16→13:43)
[2017-11-04] MEDS: lisINopril 5 MG (PRINIVIL) TABLET PO SCH (08:12)
[2017-11-04] MEDS: meTOproloL SUCCINATE 50 MG (TOPROL XL) TAB PO SCH (08:12)
--- NOTE | 2017-11-04 08:58 | Progress Note-Cardiology ---
Cardiology SOAP Progress Note Subjective: Has had recurrent midsternal and L parasternal discomfort throughout the hospitalization, including this morninb No c/o dyspnea or palpitations. Objective: I&O/Vital Signs Vital Sign - Last 12Hours 11/04/17 11/04/17 11/04/17 11/04/17 07:00 08:32 11:44 13:00 Temp 98.1 97.5 Pulse 58 57 51 58 Resp 20 18 B/P (MAP) 129/77 (94) 109/71 (84) Pulse Ox 96 97 O2 Delivery Room Air Room Air 11/04/17 16:00 Temp 98.9 Pulse 59 Resp 16 B/P (MAP) 95/65 (75) Pulse Ox 95 O2 Delivery Room Air Intake and Output 11/04/17 00:00 Intake Total 1360 ml Balance 1360 ml Weight (Pounds): 240 Weight (Ounces): 0.0 Weight (Calculated Kilograms): 108.632870 Constitutional: AAO x 3, well-developed, well-nourished Respiratory: No accessory muscle use, lungs clear to percussion, lungs clear to auscultation Cardiovascular: regular rate-rhythm, S1 and S2, systolic murmur (faint JAILENE at card base) Gastrointestional: No tender, soft, No guarding, No rebound, audible bowel sounds Extremities: No clubbing, No cyanosis, No significant edema Skin: No rash on exposed areas, No ulcerations on exposed areas Results/Procedures: Labs Laboratory Tests 11/03/17 20:45: Glucometer 156H 11/04/17 05:10: Glucometer 103 11/04/17 09:42: White Blood Count 3.6L, Red Blood Count 4.08L, Hemoglobin 16.2, Hematocrit 43, Mean Corpuscular Volume 104H, Mean Corpuscular Hemoglobin 40H, Mean Corpuscular Hemoglobin Concent 38H, Red Cell Distribution Width 13.7, Platelet Count 177, Mean Platelet Volume 8.6, Sodium Level 139, Potassium Level 4.6, Chloride Level 108H, Carbon Dioxide Level 23, Anion Gap 8, Blood Urea Nitrogen 13, Creatinine 0.82, Estimat Glomerular Filtration Rate > 60, BUN/Creatinine Ratio 16, Glucose Level 96, Calcium Level 9.5, Magnesium Level 2.5H, Total Bilirubin 1.2H, Aspartate Amino Transf (AST/SGOT) 71H, Alanine Aminotransferase (ALT/SGPT) 193H , Alkaline Phosphatase 54, Total Protein 6.9, Albumin 4.3 11/04/17 11:01: Glucometer 104 11/04/17 16:34: Glucometer 105 Laboratory Tests 11/03/17 05:35 11/04/17 09:42 A/P: Assessment: Intermittent chest discomfort Card cath of 11/04/17: no angiographically significant CAD, no evidence of thoracic aortic aneurysm or dissection, LVEF 65%, normal LVEDP Hyperglycemia (nonfasting) Obesity with BMI approx 35 Elevated liver enzymes, likely related to heavy alcohol consumption (12-pack or more every other or every third day) RBBB No evidence of cor ischemia on MPI of 11/02/17 and normal LVEF Fam h/o early CAD Mild leucopenia Hypokalemia H/O ulcerative colitis [place] [address] Mondragon Plan: * MPI does not show any evidence of ischemia, however he has continued to report symptoms of chest discomfort. Therefore, based on his symptoms and multiple risk factors as listed above we advise further cardiac evaluation with a cardiac cath. He has provided informed consent. Procedure will be later today * Eval of leucopenia and hyperglycemia is with the Med S[facility] * Elevated liver enzymes likely d/t chronic ETOH use and fatty liver disease; however we will hold statin for now Physician Assessment Physician Assessment Has continued to have chest discomfort during the hosp. No palp or syncope or shortness of breath Lungs: clear Cor: reg Ext: no c/c/e A&R * As documented in our note above that I updated (italics) at the time of this writing * Based on card w/u (see above) chest discomfort does not appear to be of cardiac origin. For eval of noncardiac causes of chest discomfort, we refer to the Med Svce * We have advised and discussed cor risk factor mod * We have advised cessation of alcohol use * Outpt f/u is advised * Is not suitable for statin because of liver enz elev, f/u on which is with the Med S[facility]ce Clinical Quality Measures AMI/AHF: ASA po Prior to arrival: CHESTER Sumner DIRECTOR OF PROGRAMMING Nov 04, 2017 08:58 CARMINE GOLDBERG MD FACP FAC CCDS Nov 04, 2017 17:56
[2017-11-04] MEDS ORDERED: CLOPIDOGREL 75 MG (PLAVIX) TABLET PO SCH (09:00)
[2017-11-04 09:52] LABS: HEMOGLOBIN 16.2 G/DL (13.3-17.7); MEAN PLATELET VOLUME 8.6 FL (7.4-10.4); RED BLOOD COUNT 4.08 10^6/uL (4.35-5.85); RED CELL DISTRIBUTION WIDTH 13.7 % (10.0-14.5); WHITE BLOOD COUNT 3.6 10^3/uL (4.3-11.0)
[2017-11-04 10:11] LABS: ALANINE AMINOTRANSFERASE 193 U/L (0-55); ALBUMIN 4.3 GM/DL (3.2-4.5); ALKALINE PHOSPHATASE 54 U/L (40-136); BILIRUBIN,TOTAL 1.2 MG/DL (0.1-1.0); BUN/CREATININE RATIO 16; CALCIUM 9.5 MG/DL (8.5-10.1); CARBON DIOXIDE 23 MMOL/L (21-32); CHLORIDE 108 MMOL/L (98-107); CREATININE SERUM 0.82 MG/DL (0.60-1.30); GFR ESTIMATED > 60; GLUCOSE 96 MG/DL (70-105); MAGNESIUM 2.5 MG/DL (1.8-2.4); POTASSIUM 4.6 MMOL/L (3.6-5.0); SODIUM 139 MMOL/L (135-145); TOTAL PROTEIN 6.9 GM/DL (6.4-8.2)
--- NOTE | 2017-11-04 11:46 | Progress Note-Hospitalist ---
Progress Note HPI/CC on Admission Pt is a 52yoCM with a PMH of ulcerative colitis who presents to the ER with CC of chest pain. He reports his symptoms started 1 month ago and he thought he had pulled a muscle. He has central chest pain that lasts a few minutes and will recur 3-5x throughout the day. He denies any SOB, nausea, diaphoresis, or radiation of the pain during these episodes. He reports they come on randomly and are no associated with exertion. He felt it may be due to heart burn. Nothing worsened today he just told his how long his pain had been occurring and she prompted him to seek evaluation in the ER. 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 Crowell, but he admits to seeing Dr. Shukla too since he states he went to school with both of them Physical exam stable. Lungs sound perfect No fever, vital signs stable, pleasant and sitting in chair Regular rate rhythm, clear to auscultation bilaterally No edema Assessment: Chest pain Hypercholesterolemia Family history of heart disease Plan: Cath today with Dr. Basilio Retain pt if needing more than cath Scribed by Sophia Hannah under direct supervision of Dr. Leslye Kerr. LESLYE KERR DO Nov 04, 2017 11:46
[2017-11-04] MEDS ORDERED: LIDOCAINE 1% INJ 50 ML (XYLOCAINE) VIAL ONE (14:02)
[2017-11-04] MEDS ORDERED: HEParin (CATH LAB) 2,000 ML IV ONE (14:02)
[2017-11-04] MEDS ORDERED: MIDAZOLAM 5 MG/5 ML (VERSED) VIAL ONE (16:32)
[2017-11-04] MEDS ORDERED: fentaNYL INJECTION 100 MCG/2 ML AMP ONE (16:32)
[2017-11-04] MEDS ORDERED: diphenhydrAMINE 50 MG/ML INJ (BENADRYL) ONE (16:32)
[2017-11-04] MEDS ORDERED: NS IV 1000 ML 1,000 ML IV SCH ×2 (17:45→17:56)
[2017-11-04] MEDS ORDERED: PATIENT MAY USE OWN MEDS, ALL PO SCH (18:00)
--- NOTE | 2017-11-05 00:53 | CARDIAC CATHETERIZATION ---
DATE OF SERVICE: 11/04/2017 ATTENDING PHYSICIAN: Dr. Carolina Seymour. The patient is a 52-year-old man with multiple coronary artery disease risk factors, who was hospitalized with chest discomfort. In the hospital, he continued to have episode of chest discomfort. The concern was that he was having unstable angina. Cardiac catheterization was carried out after having obtained an informed consent. PROCEDURE: He was brought to the cardiac catheterization laboratory in a fasting state. Right groin was prepared and draped in the usual sterile fashion. A 1% lidocaine was used for local anesthesia. Modified Seldinger technique was used to advance a 5-Kyrgyz sheath in the right femoral artery. A 5-Kyrgyz JL4 catheter was used for left coronary angiography. A 5-Kyrgyz JR4 catheter was used for right coronary angiography. A 5-Kyrgyz pigtail catheter was used for left heart catheterization and left ventricular angiography. Because he had been having midsternal chest discomfort associated with hypertension, we also wanted to exclude aortic dissection. The pigtail catheter was pulled back to the aortic arch and aortic arch angiography was performed. The pigtail catheter was then removed. Angiography of the right femoral artery was carried out through the sheath. Mynx was used to achieve hemostasis. He tolerated the procedure well. HEMODYNAMICS: Left ventricular end-diastolic pressure following coronary angiography was 9 mmHg. There was no significant pressure gradient on pullback across the aortic valve. Ascending aortic pressure was 102/66 with a mean of 72 mmHg. LEFT VENTRICULAR ANGIOGRAPHY: Left ventricular angiography was carried out in the right anterior oblique projection. Global left ventricular systolic function is normal. No regional wall motion abnormality is seen. Left ventricular ejection fraction is approximately 65%. There does not appear to be significant mitral regurgitation. CORONARY ANGIOGRAPHY: Left main coronary artery, left circumflex artery, right coronary artery do not exhibit angiographically significant coronary artery disease. The left anterior descending artery is of a small caliber distally. The right coronary and the left circumflex arteries are codominant. AORTIC ARCH ANGIOGRAPHY: Aortic arch angiography did not indicate any thoracic aortic aneurysm or dissection. The neck arteries, to the extent visualized, do not exhibit significant obstructive disease. CONCLUSIONS: 1. No angiographically significant coronary artery disease. 2. Normal global left ventricular systolic function with ejection fraction of approximately 65%. 3. Normal left ventricular end-diastolic pressure. 4. No evidence of thoracic aortic aneurysm or dissection. DISCUSSION AND RECOMMENDATIONS: Based on the results of the study, chest discomfort does not appear to be of cardiac origin. Continuing risk factor modification is advised. Outpatient followup is advised. For evaluation of noncardiac causes of chest discomfort, he is referred to the medical service. Job ID: [id number] DocumentID: [id number] Dictated Date: 11/04/2017 17:44:46 Product Representative Date: 11/05/2017 00:40:58 Dictated By: CARMINE GOLDBERG MD, MA, FACP, FACC,
--- OUTSIDE RECORDS SUMMARY | 2017-11-05 15:18 | XMS REPORT | Continuity of Care Document ---
Author Author [facility] Organization [facility] Address Unknown Phone Unavailable Allergies Active Description Code Type Severity Reaction Onset Reported/Identified Relationship to Patient Clinical Status Yes aspirin [id number] Drug Allergy Unknown N/A 10/01/2006 Medications There [...] - 11/02/17 12:10 Lipase 51 U/L 8-78 Lipid 1996 panel - 11/02/17 12:10 Serum or plasma triglyceride measurement (mass/volume) 205 mg/dL <150 Serum or plasma cholesterol measurement (mass/volume) 239 mg/dL < 200 Serum or plasma cholesterol in HDL measurement (mass/volume) 45 mg/ dL 40-60 Cholesterol in LDL [mass/volume] in serum or plasma by direct assay 149 mg/dL 1-129 Serum or plasma cholesterol in VLDL measurement (mass/volume) 41 mg/ dL 5-40 Hemoglobin A1c - 11/02/17 12:10 Blood hemoglobin A1C measurement (mass/volume) 5.9 % 4.0- 5.6 MEAN BLOOD GLUCOSE 123 % <=126 Capillary blood glucose measurement by glucometer (mass/volume) - 11/02/17 16: 04 Capillary blood glucose measurement by glucometer (mass/volume) 119 mg/dL 70-110 Serum or plasma troponin i.cardiac measurement (mass/volume) - 11/02/17 17:50 Serum or plasma troponin i.cardiac measurement (mass/volume) < ng/ mL <0.30 Capillary blood glucose measurement by glucometer (mass/volume) - 11/02/17 20: 48 Capillary blood glucose measurement by glucometer (mass/volume) 121 mg/dL 70-110 Serum or plasma troponin i.cardiac measurement (mass/volume) - 11/02/17 23:55 Serum or plasma troponin i.cardiac measurement (mass/volume) < ng/ mL <0.30 Capillary blood glucose measurement by glucometer (mass/volume) - 11/03/17 05: 08 Capillary blood glucose measurement by glucometer (mass/volume) 116 mg/dL 70-110 Complete blood count (CBC) with automated white blood cell (WBC) differential - 11/03/17 05:35 Blood leukocytes automated count (number/volume) 3.4 10*3/uL 4.3-11.0 Blood erythrocytes automated count (number/volume) 3.71 10*6/uL 4.35-5.85 Venous blood hemoglobin measurement (mass/volume) 14.8 g/dL 13.3-17.7 Blood hematocrit (volume fraction) 39 % 40-54 Automated erythrocyte mean corpuscular volume 106 [foz_us] 80-99 Automated erythrocyte mean corpuscular hemoglobin (mass per erythrocyte) 40 pg 25-34 Automated erythrocyte mean corpuscular hemoglobin concentration measurement ( mass/volume) 38 g/dL 32-36 Automated erythrocyte distribution width ratio 13.8 % 10.0-14.5 Automated blood platelet count (count/volume) 163 10*3/uL 130-400 Automated blood platelet mean volume measurement 8.9 [foz_us] 7.4-10.4 Automated blood neutrophils/100 leukocytes 41 % 42-75 Automated blood lymphocytes/100 leukocytes 42 % 12-44 Blood monocytes/100 leukocytes 15 % 0-12 Automated blood eosinophils/100 leukocytes 2 % 0-10 Automated blood basophils/100 leukocytes 1 % 0-10 Blood neutrophils automated count (number/volume) 1.4 10*3 1.8-7.8 Blood lymphocytes automated count (number/volume) 1.4 10*3 1.0-4.0 Blood monocytes automated count (number/volume) 0.5 10*3 0.0-1.0 Automated eosinophil count 0.1 10*3/uL 0.0-0.3 Automated blood basophil count (count/volume) 0.0 10*3/uL 0.0-0.1 Comprehensive metabolic panel - 11/03/17 05:35 Serum or plasma sodium measurement (moles/volume) 141 mmol/L 135-145 Serum or plasma potassium measurement (moles/volume) 3.9 mmol/L 3.6-5.0 Serum or plasma chloride measurement (moles/volume) 108 mmol/L 98-107 Carbon dioxide 24 mmol/L 21-32 Serum or plasma anion gap determination (moles/volume) 9 mmol/L 5-14 Serum or plasma urea nitrogen measurement (mass/volume) 13 mg/dL 7-18 Serum or plasma creatinine measurement (mass/volume) 0.84 mg/dL 0.60-1.30 Serum or plasma urea nitrogen/creatinine mass ratio 15 NRG Serum or plasma creatinine measurement with calculation of estimated glomerular filtration rate > NRG Serum or plasma glucose measurement (mass/volume) 122 mg/dL 70-105 Serum or plasma calcium measurement (mass/volume) 8.8 mg/dL 8.5-10.1 Serum or plasma total bilirubin measurement (mass/volume) 0.8 mg/dL 0.1-1.0 Serum or plasma alkaline phosphatase measurement (enzymatic activity/volume) 52 U/L 40-136 Serum or plasma aspartate aminotransferase measurement (enzymatic activity/ volume) 74 U/L 5-34 Serum or plasma alanine aminotransferase measurement (enzymatic activity/volume ) 192 U/L 0-55 Serum or plasma protein measurement (mass/volume) 6.0 g/dL 6.4-8.2 Serum or plasma albumin measurement (mass/volume) 3.7 g/dL 3.2-4.5 Lipid 1996 panel - 11/03/17 05:35 Serum or plasma triglyceride measurement (mass/volume) 178 mg/dL <150 Serum or plasma cholesterol measurement (mass/volume) 208 mg/dL < 200 Serum or plasma cholesterol in HDL measurement (mass/volume) 42 mg/ dL 40-60 Cholesterol in LDL [mass/volume] in serum or plasma by direct assay 133 mg/dL 1-129 Serum or plasma cholesterol in VLDL measurement (mass/volume) 36 mg/ dL 5-40 THYROID STIMULATING HORMONE - 11/03/17 05:35 THYROID STIMULATING HORMONE 3.03 u[iU]/mL 0.35-4.94 Capillary blood glucose measurement by glucometer (mass/volume) - 11/03/17 11: 08 Capillary blood glucose measurement by glucometer (mass/volume) 165 mg/dL 70-110 Capillary blood glucose measurement by glucometer (mass/volume) - 11/03/17 16: 12 Capillary blood glucose measurement by glucometer (mass/volume) 115 mg/dL 70-110 Capillary blood glucose measurement by glucometer (mass/volume) - 11/03/17 20: 45 Capillary blood glucose measurement by glucometer (mass/volume) 156 mg/dL 70-110 Capillary blood glucose measurement by glucometer (mass/volume) - 11/04/17 05: 10 Capillary blood glucose measurement by glucometer (mass/volume) 103 mg/dL 70-110 Automated blood complete blood count (hemogram) panel - 11/04/17 09:42 Blood leukocytes automated count (number/volume) 3.6 10*3/uL 4.3-11.0 Blood erythrocytes automated count (number/volume) 4.08 10*6/uL 4.35-5.85 Venous blood hemoglobin measurement (mass/volume) 16.2 g/dL 13.3-17.7 Blood hematocrit (volume fraction) 43 % 40-54 Automated erythrocyte mean corpuscular volume 104 [foz_us] 80-99 Automated erythrocyte mean corpuscular hemoglobin (mass per erythrocyte) 40 pg 25-34 Automated erythrocyte mean corpuscular hemoglobin concentration measurement ( mass/volume) 38 g/dL 32-36 Automated erythrocyte distribution width ratio 13.7 % 10.0-14.5 Automated blood platelet count (count/volume) 177 10*3/uL 130-400 Automated blood platelet mean volume measurement 8.6 [foz_us] 7.4-10.4 Comprehensive metabolic panel - 11/04/17 09:42 Serum or plasma sodium measurement (moles/volume) 139 mmol/L 135-145 Serum or plasma potassium measurement (moles/volume) 4.6 mmol/L 3.6-5.0 Serum or plasma chloride measurement (moles/volume) 108 mmol/L 98-107 Carbon dioxide 23 mmol/L 21-32 Serum or plasma anion gap determination (moles/volume) 8 mmol/L 5-14 Serum or plasma urea nitrogen measurement (mass/volume) 13 mg/dL 7-18 Serum or plasma creatinine measurement (mass/volume) 0.82 mg/dL 0.60-1.30 Serum or plasma urea nitrogen/creatinine mass ratio 16 NRG Serum or plasma creatinine measurement with calculation of estimated glomerular filtration rate > NRG Serum or plasma glucose measurement (mass/volume) 96 mg/dL 70-105 Serum or plasma calcium measurement (mass/volume) 9.5 mg/dL 8.5-10.1 Serum or plasma total bilirubin measurement (mass/volume) 1.2 mg/dL 0.1-1.0 Serum or plasma alkaline phosphatase measurement (enzymatic activity/volume) 54 U/L 40-136 Serum or plasma aspartate aminotransferase measurement (enzymatic activity/ volume) 71 U/L 5-34 Serum or plasma alanine aminotransferase measurement (enzymatic activity/volume ) 193 U/L 0-55 Serum or plasma protein measurement (mass/volume) 6.9 g/dL 6.4-8.2 Serum or plasma albumin measurement (mass/volume) 4.3 g/dL 3.2-4.5 Magnesium - 11/04/17 09:42 Magnesium 2.5 mg/dL 1.8-2.4 Capillary blood glucose measurement by glucometer (mass/volume) - 11/04/17 11: 01 Capillary blood glucose measurement by glucometer (mass/volume) 104 mg/dL 70-110 Capillary blood glucose measurement by glucometer (mass/volume) - 11/04/17 16: 34 Capillary blood glucose measurement by glucometer (mass/volume) 105 mg/dL 70-110 Capillary blood glucose measurement by glucometer (mass/volume) - 11/04/17 20: 06 Capillary blood glucose measurement by glucometer (mass/volume) 141 mg/dL 70-110 Encounters ACCT No. Visit Date/Time Discharge Status Pt. Type Provider Facility Loc./Unit Complaint [id number] 11/02/2017 14:05:00 11/04/2017 20:15:00 DIS Inpatient KIKA ROCK, ROXANNA Brown [facility] 4TH CP, ELEV LFT, ELEV BLOOD GLUCOSE [id number] 12/07/2015 13:44:00 12/07/2015 15:38:00 DIS Emergency SHERMAN ROCK, EZ T [facility] ER [id number] 12/01/2015 16:57:00 12/01/2015 21:52:00 DIS Emergency JUNIOR LEACH L [facility] ER [id number] 09/06/2013 08:01:00 09/06/2013 09:02:00 DIS Outpatient MARY KATE HOOPER MD [facility] REHAB [id number] 09/05/2013 12:49:00 09/05/2013 14:23:00 DIS Outpatient MARY KATE HOOPER MD [facility] CARD [id number] 07/13/2013 13:36:00 07/13/2013 23:59:59 CLS Outpatient KENNETH ROCK, TIN Lozano [facility] RAD [id number] 08/10/2012 10:36:00 Document Registration
== END 2017-11-04 20:15 | disposition home or self-care (01) ==
LOC: EDUNIT# 11:55 → ER 11:57 → UNDOADMOB 14:05 → 4TH 14:05 → CATH 15:00 → UNDODISOB 11-04 20:15
PROVIDERS: ATTEND Family Medicine
DX: I25.10 Atherosclerotic heart disease of native coronary artery without angina pectoris (principal); E78.00 Pure hypercholesterolemia, unspecified; Z82.49 Family history of ischemic heart disease and other diseases of the circulatory system; R73.9 Hyperglycemia, unspecified; E66.9 Obesity, unspecified; R74.8 Abnormal levels of other serum enzymes; I45.10 Unspecified right bundle-branch block; E87.6 Hypokalemia; D72.819 Decreased white blood cell count, unspecified; K51.90 Ulcerative colitis, unspecified, without complications; Z68.35 Body mass index [BMI] 35.0-35.9, adult; Z88.6 Allergy status to analgesic agent; Z79.899 Other long term (current) drug therapy
CPT/HCPCS: 36221; 36415; 71045; 78452; 80053; 80061; 82962; 83036; 83690; 83735; 83874; 84443; 84484; 85025; 85027; 85610; 85730; 93005; 93017; 93041; 93306; 93458; 96360; G0378

== ENCOUNTER → 2017-12-15 | Outpatient (CLI) | payer OTHER ==
[~2017-12-15] MED LIST changes: +MERC50TA PO
--- NOTE | 2017-12-15 10:01 | Diagnostic Imaging Report ---
Indication: Abnormal liver function tests Abdominal sonography performed in the routine fashion. The liver shows diffuse increased echogenicity compatible with fatty infiltration. There is no focal liver lesion. Portal vein is patent with flow in the normal direction toward the liver. Common duct is not visualized. Gallbladder is unremarkable with no stones or wall thickening. There is no intrahepatic biliary dilatation. The pancreas is not well-seen due to overlying gas. The spleen was unremarkable measured 10.7 cm in greatest diameter. The aorta and IVC were unremarkable. The right kidney was normal and measured 12.1 cm in length. The left kidney was normal and measured 10.0 cm. There is no ascites. IMPRESSION: Increased echogenicity of the liver compatible with fatty infiltration. No focal liver lesion seen. The portal vein is patent. Gallbladder is unremarkable. The common bile duct is not well seen but the intrahepatic ducts are not dilated. There was no ascites. Dictated by: Dictated on workstation # [id number]
== END ==
LOC: RAD 07:56
PROVIDERS: ATTEND Internal Medicine
DX: R94.5 Abnormal results of liver function studies (principal)
CPT/HCPCS: 76700

== ENCOUNTER → 2018-10-20 | Outpatient (CLI) | payer OTHER ==
[~2018-10-20] MED LIST changes: -OXYC-197 PO; +OXYC1TAB87 PO
--- NOTE | 2018-10-20 15:01 | Diagnostic Imaging Report ---
PROCEDURE: MRI lumbar spine. TECHNIQUE: Multiplanar, multisequence MRI of the lumbar spine was performed without contrast. INDICATION: Chronic low back pain with bilateral leg pain. COMPARISON: Correlation is made with prior MRI of the lumbar spine from 07/13/2013. FINDINGS: Curvature of the lumbar spine is normal. Grade 1 spondylolisthesis of L5 on S1 is similar to prior exam measuring approximately 7-8 mm. Vertebral body heights are maintained. Marrow signal intensity is unremarkable. No acute compression fracture or geographic marrow lesion is seen. There is loss of height and signal intensity to the L5-S1 disc compatible with degenerative disc disease. There is some mild disc space narrowing and desiccation at L2-3 level as well. This is similar to prior study. The conus is unremarkable at the L1 level. T12-L1: Central canal is widely patent. The neural foramina are widely patent. L1-2: Unremarkable. L2-3: There is minimal annular bulging but no central canal or neural foraminal narrowing is seen. L3-4: There is some annular bulging present but central canal remains patent. There is mild ligamentous thickening noted. Neural foramina remain widely patent. L4-5: Central canal and neural foramina are widely patent. L5-S1: Spondylolisthesis is again seen. There appear to be bilateral pars defects at this level. Central canal is widely patent. There is significant bilateral neural foraminal stenosis, similar to prior exam. Paraspinous tissues are unremarkable. IMPRESSION: Grade 1 spondylolisthesis L5 on S1 with bilateral pars defects. Bilateral neural foraminal stenosis is again noted. The central canal is patent. All other levels of the lumbar spine are unremarkable. Dictated by: Dictated on workstation # [id number]
== END ==
LOC: RAD 13:36
PROVIDERS: ATTEND Internal Medicine
DX: M48.061 Spinal stenosis, lumbar region without neurogenic claudication (principal); M43.17 Spondylolisthesis, lumbosacral region
CPT/HCPCS: 72148

== ENCOUNTER 2022-11-03 18:52 | Emergency (ER) | payer MEDICARE, OTHER ==
[~2022-11-03 18:52] MED LIST changes: +CLIN-144 PO; -CLIN300C11 PO; -OXYC-471; +OXYC1TAB11; -SULF1TAB35 PO; +SULF1TAB38 PO
--- NOTE | 2022-11-03 20:10 | ED Abdominal Pain ---
General Chief Complaint: Abdominal/GI Problems Stated Complaint: ABD PAIN Nursing Triage Note: TO ED VIA POV AND AMBULATORY TO ROOM 9 WITH C/O HAVING ABD PAIN AT SITE OF BELLY BUTTON THAT RADIATED TO LEFT SIDE. PT STATES HE WAS SITTING IN HIS GARAGE DRINKING BEER WHEN STARTED. HE STATES HE PUSHED ON BELLY BUTTON AND PAIN STOPPED. RATES PAIN 0/10 AT THIS TIME. DENIES N/V/D. Source of Information: Patient Exam Limitations: No Limitations History of Present Illness Date Seen by Provider: Nov 03, 2022 Time Seen by Provider: 20:09 Initial Comments Patient is a 57-year-old male who presents the ED with umbilical pain. This started few hours right before arrival. Noted a sharp pain overlying his umbilicus. He put pressure on his bellybutton and had a pain that radiated to the left side. This eventually resolved itself. Patient felt a pop. He reports some mild pain and tenderness on palpation but reports significant improvement. Denies history of previous abdominal surgery. Denies nausea, vomiting, diarrhea. Has not ate or drank. Patient [place] fever, chills, he adache, chest pain, shortness of breath, weakness. Patient states he has had this hernia for 12 years. Mild increase in size over the past 3 to 4 years Allergies and Home Medications Allergies Coded Allergies: aspirin (Verified Allergy, Unknown, 11/03/22) HIVES Patient Home Medication List Home Medication List Reviewed: Yes Mercaptopurine (Mercaptopurine) 50 Mg Tablet, 150 MG PO DAILY, (Reported) Entered as Reported by: JORDI OLIVA on 11/03/17 0932 Review of Systems Review of Systems Constitutional: No chills, No diaphoresis, No malaise, No weakness EENTM: No Blurred Vision, No Eye Pain Respiratory: Denies Cough, Denies Orthopnea Cardiovascular: Denies Chest Pain Gastrointestinal: Denies See HPI; Abdominal Pain; Denies Diarrhea, Denies Nausea, Denies Vomiting Genitourinary: Denies Burning, Denies Discharge Musculoskeletal: No back pain, No joint pain All Other Systems Reviewed Negative Unless Noted: Yes Past Pqtuedk-Bpdedh-Ecfhnx Hx Patient Social History Tobacco Use?: Yes Alcohol Use?: Yes Alcohol type: Beer Alcohol Frequency: Daily Immunizations Up To Date Influenza Vaccine Up-to-Date: Yes; Up-to-Date COVID19 Vaccine 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 Seasonal Allergies Seasonal Allergies: No Past Medical History Surgeries: Yes Orthopedic Respiratory: No Currently Using CPAP: No Currently Using BIPAP: No Cardiac: No Neurological: No Sexually Transmitted Disease: No HIV/AIDS: No Genitourinary: No Gastrointestinal: Yes Colitis, Gastroesophageal Reflux Musculoskeletal: Yes (traumatic wound to the left lower extremity from chainsaw) Endocrine: No HEENT: Yes Cataract Loss of Vision: Denies Hearing Impairment: Denies Cancer: No Psychosocial: No Blood Disorders: No Adverse Reaction/Blood Tranf: No Family Medical History Arthritis Cardiovascular disease Hypertension Myocardial infarction Respiratory disorder Heart Disease, CAD Under 55 Years Old, CAD Over 55 Years Old, Hypertension Physical Exam Vital Signs Vital Signs - First Documented 11/03/22 19:25 Temp 36.9 Pulse 71 Resp 16 B/P (MAP) 144/86 (105) Pulse Ox 98 O2 Delivery Room Air Capillary Refill : Less Than 3 Seconds Height/Weight/BMI Height: 5'9.00" Weight: 240lbs. 0.0oz. [id number]; 35.4 BMI Method:Stated General Appearance: WD/WN, no apparent distress HEENT: PERRL/EOMI, normal ENT inspection, TMs normal, pharynx normal Neck: non-tender, full range of motion Respiratory: chest non-tender, lungs clear, normal breath sounds, no respiratory distress, no accessory muscle use Cardiovascular: regular rate, rhythm, no edema, no gallop, no JVD Gastrointestinal: normal bowel sounds, soft, no organomegaly, other (Umbilical hernia. Reducible. 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 Patient had no tenderness to palpate. Reducible umblical hernia. Patient appears in no acute distress. He states he has had this hernia for 12 years. He has noticed some increase in size over the past 3 to 4 years. Patient has no vomiting or diarrhea. No tenderness to palpate. No evidence of surgical abdomen at this time. Discussed with patient that this will need surgical intervention. Not concern for incarceration or strangulation at this time as patient is pain-free and hernia is reducible. She does not appear in acute distress. Discussed outpatient follow-up with general surgery on-call Dr. Nicholas. If any worsening pain, actively vomiting these return back to ED. Patient agrees with plan of action Impression Primary Impression: Umbilical hernia Disposition: 01 HOME, SELF-CARE Condition: Stable Departure-Patient Inst. Decision time for Depature: 20:09 Referrals: SHELDON NICHOLAS WILLIAM J DO (PCP/Family) Primary Care Physician Patient Instructions: Umbilical Hernia, Adult Add. Discharge Instructions: Recommend If continue having pain need to return back to ED. follow-up with general surgery. Potentially could result in a incarcerated or strangulated hernia. All discharge instructions reviewed with patient and/or family. Voiced understanding. BRADLEY JACOB Nov 03, 2022 20:10
[2022-11-03 20:15] VITALS: BP 135/90
== END 2022-11-03 20:15 | disposition home or self-care (01) ==
LOC: EDUNIT# 18:52 → ER 18:53
DX: K42.9 Umbilical hernia without obstruction or gangrene (principal)
CPT/HCPCS: 99281

== ENCOUNTER 2022-11-22 20:17 | Emergency (ER) | payer MEDICARE, OTHER ==
[~2022-11-22] VITALS: Ht 175 cm; Wt 98.0 kg
--- NOTE | 2022-11-22 21:12 | ED Integumentary General ---
General Chief Complaint: Skin/Wound Problems Stated Complaint: POST OP HERNIA - RED, WARM, LEAKING FLUID Nursing Triage Note: Pt presents with c/o redness and clear drainage coming from surgical site. Pt had an umbilical hernia repair yesterday, approx 1 hour ago he noticed redness and a small amount of clear drainage coming from incision. Source: patient Exam Limitations: no limitations (BRADLEY JACOB) History of Present Illness Date Seen by Provider: Nov 22, 2022 Time Seen by Provider: 21:09 Initial Comments Patient is a 57-year-old male who presents to the ED for concern for redness around his surgical site. Patient had umbilical hernia repair performed by Dr. Bach general surgeon at [facility] yesterday. Patient states he had pain around his umbilical site after the surgery. Rates pain 8 out of 10. Pain has been constant worse when he leans forward or moves. He has not passed gas since the surgery. Currently on a laxative and taking oxycodone. Denies vomiting. Denies of any distention of his abdomen, fever, chills, trauma, chest pain, shortness of breath. Patient states 2 hours ago the redness started to develop and has increased around his umbilical area. (BRADLEY JACOB) Allergies and Home Medications Allergies Coded Allergies: aspirin (Verified Allergy, Unknown, 11/03/22) HIVES Patient Home Medication List Home Medication List Reviewed: Yes (BRADLEY JACOB) Cephalexin (Cephalexin) 500 Mg Tablet, 500 MG PO QID Prescribed by: KATHLEEN WALKER on 11/22/222200 Mercaptopurine (Mercaptopurine) 50 Mg Tablet, 150 MG PO DAILY, (Reported) Entered as Reported by: JORDI OLIVA on 11/03/17 0932 Review of Systems Review of Systems Constitutional: No chills, No diaphoresis, No fever, No malaise EENTM: No ear pain, No blurred vision, No double vision, No mouth pain, No mouth swelling, No throat pain, No throat swelling Respiratory: No cough, No short of breath Cardiovascular: No chest pain Gastrointestinal: abdominal pain; No diarrhea, No vomiting Genitourinary: No decreased output, No discharge Musculoskeletal: No back pain, No joint pain Skin: change in color (BRADLEY JACOB) Past Hdcbkil-Ijdxop-Rrrrur Hx Patient Social History Tobacco Use?: Yes Smoking Status: Unknown if Ever Smoked Smokeless Tobacco Frequency: Current Everyday User Use of E-Cig and/or Vaping dev: No Substance use?: No Alcohol Use?: Yes Alcohol type: Beer Alcohol Frequency: Couple times a week Pt feels they are or have been: No (BRADLEY JACOB) Immunizations Up To Date Influenza Vaccine Up-to-Date: Yes; Up-to-Date (BRADLEY JACOB) Seasonal Allergies Seasonal Allergies: No (BRADLEY JACOB) Past Medical History Surgery/Hospitalization HX: umbilical hernia repair at surgery center Surgeries: Yes Orthopedic Respiratory: No Currently Using CPAP: No Currently Using BIPAP: No Cardiac: No Neurological: No Sexually Transmitted Disease: No HIV/AIDS: No Genitourinary: No Gastrointestinal: Yes Colitis, Gastroesophageal Reflux Musculoskeletal: Yes (traumatic wound to the left lower extremity from chainsaw) Endocrine: No HEENT: Yes Cataract Loss of Vision: Denies Hearing Impairment: Denies Cancer: No Psychosocial: No Blood Disorders: No Adverse Reaction/Blood Tranf: No (BRADLEY JACOB) Family Medical History Arthritis Cardiovascular disease Hypertension Myocardial infarction Respiratory disorder Heart Disease, CAD Under 55 Years Old, CAD Over 55 Years Old, Hypertension (BRADLEY JACOB) Physical Exam Vital Signs Vital Signs - First Documented 11/22/22 11/22/22 20:28 22:07 Temp 36.4 Pulse 67 Resp 16 B/P (MAP) 160/84 (109) Pulse Ox 99 O2 Delivery Room Air (EZ WHITAKER MD) Vital Signs Capillary Refill : Less Than 3 Seconds (BRADLEY JACOB) General Appearance: WD/WN, no apparent distress HEENT: PERRL/EOMI, normal ENT inspection, TMs normal, pharynx normal Neck: non-tender, full range of motion, supple Cardiovascular: regular rate, rhythm, no edema, no gallop, no JVD Respiratory: chest non-tender, lungs clear, normal breath sounds, no respiratory distress, no accessory muscle use Gastrointestinal: normal bowel sounds, soft, no organomegaly, tenderness (Umbilicus tenderness with healing surgical repair site. No purulent drainage or fluctuant mass. Softball sized surrounding erythema. Surgical site left lateral abdomen closed and healing with mild amount of surrounding erythema) Extremities: normal range of motion, non-tender, normal inspection, no pedal edema Skin: other (Surgical sites noted around the abdomen. Healing surgical wounds with softball size erythema around the umbilicus. No fluctuant mass.) (BRADLEY JACOB) Progress/Results/Core Measures Results/Orders Lab Results Laboratory Tests Test 11/22/22 21:11 Range/Units White Blood Count 6.2 4.3-11.0 10^3/uL Red Blood Count 4.44 4.30-5.52 10^6/uL Hemoglobin 16.3 13.3-17.7 g/dL Hematocrit 46 40-54 % Mean Corpuscular Volume 104 H 80-99 fL Mean Corpuscular Hemoglobin 37 H 25-34 pg Mean Corpuscular Hemoglobin Concent 35 32-36 g/dL Red Cell Distribution Width 11.4 10.0-14.5 % Platelet Count 94 L 130-400 10^3/uL Mean Platelet Volume 9.1 9.0-12.2 fL Immature Granulocyte % (Auto) 0 % Neutrophils (%) (Auto) 60 42-75 % Lymphocytes (%) (Auto) 27 12-44 % Monocytes (%) (Auto) 11 0-12 % Eosinophils (%) (Auto) 1 0-10 % Basophils (%) (Auto) 1 0-10 % Neutrophils # (Auto) 3.8 1.8-7.8 10^3/uL Lymphocytes # (Auto) 1.7 1.0-4.0 10^3/uL Monocytes # (Auto) 0.7 0.0-1.0 10^3/uL Eosinophils # (Auto) 0.1 0.0-0.3 10^3/uL Basophils # (Auto) 0.0 0.0-0.1 10^3/uL Immature Granulocyte # (Auto) 0.0 0.0-0.1 10^3/uL Percent Immature Platelet Fraction 1.7 0.0-7.6 % Sodium Level 137 135-145 MMOL/L Potassium Level 3.5 L 3.6-5.0 MMOL/L Chloride Level 104 98-107 MMOL/L Carbon Dioxide Level 22 21-32 MMOL/L Anion Gap 11 5-14 MMOL/L Blood Urea Nitrogen 13 7-18 MG/DL Creatinine 0.92 0.60-1.30 MG/DL Estimat Glomerular Filtration Rate 96 BUN/Creatinine Ratio 14 Glucose Level 153 H 70-105 MG/DL Calcium Level 9.2 8.5-10.1 MG/DL Corrected Calcium 9.3 8.5-10.1 MG/DL Total Bilirubin 0.7 0.1-1.0 MG/DL Aspartate Amino Transf (AST/SGOT) 48 H 5-34 U/L Alanine Aminotransferase (ALT/SGPT) 60 H 0-55 U/L Alkaline Phosphatase 71 40-136 U/L Total Protein 6.6 6.4-8.2 GM/DL Albumin 3.9 3.2-4.5 GM/DL Smear Scan YES (EZ WHITAKER MD) Medications Given in ED Current Medications Medications Dose Ordered Sig/Gildardo Route Start Time Stop Time Status Last Admin Dose Admin Iohexol 100 ml ONCE ONCE IV 11/22/22 21:30 11/22/22 21:31 DC 11/22/22 21:29 80 ML Sodium Chloride 100 ml ONCE ONCE IV 11/22/22 21:30 11/22/22 21:31 DC 11/22/22 21:29 80 ML (EZ WHITAKER MD) Vital Signs/I&O 11/22/22 11/22/22 20:28 22:07 Temp 36.4 36.6 Pulse 67 60 Resp 16 16 B/P (MAP) 160/84 (109) 151/82 Pulse Ox 99 O2 Delivery Room Air (EZ WHITAKER MD) Blood Pressure Mean: 109 Departure Communication (PCP) Reviewed previous ER visits, H&P's, lab testing. History of umbilical hernia. Had a umbilical hernia repair performed by Dr. Isreal Patten general surgery yesterday. Has had 8 out of 10 pain around his umbilicus since his surgery. Currently on oxycodone. Has not had a bowel movement or pass gas. No vomiting, fever, chills. Noted some erythema around his umbilical hernia repair 2 hours prior before arrival. On exam softball sized erythema around the umblicus. Mild tenderness. Patient does have Dermabond overlying the wound. No purulent drainage or palpable abscess. Healing Surgical site noted to the left lateral abdomen with surrounding erythema. No tenderness to palpate to this location. Would not suspect this QUICK of cellulitis however it is warm, radha thematous. He does have some pain to this area. Due to the increasing pain, erythema and to rule out potential obstruction/hernia. CT abdomen and pelvis was ordered. CBC, CMP was ordered. CBC showed normal white blood count, hemoglobin. Platelets 94. Chemistry showed hypokalemia at 3.4, hyperglycemia 153 with normal kidney function. Slight elevated liver enzymes. He has no right upper quadrant tenderness. He is afebrile with stable vital signs. Slightly hypertensive. CT abdomen and pelvis shows chronic surgical findings. Postoperative changes from the recent hernia repair noted. Subtle pockets of gas in the left rectus sheath as well as the peribuccal subcutaneous soft tissue. There is a small fat-containing umblical hernia with an 8 mm fascial defect. This appears to be incarcerated but not definitively strangulated. Mid abdominal stranding noted. Moderate stool noted. Contacted [facility] and talk to Dr. GE general surgeon on-call for Dr. Bach. Recommends starting Keflex for potential cellulitic infection. Denies wearing any adhesives to this location suggesting contact dermatitis. He is Not concern for CT scan findings. Patient is not septic. Follow-up outpatient only with Dr. Bach this week. If any worsening redness, swelling or pain return back to ED. Patient is currently on laxatives. Patient feels like he needs to have a bowel movement. Continue monitoring symptoms at home. (BRADLEY JACOB) Impression Primary Impression: Abdominal wall pain Disposition: HOME, SELF-CARE Condition: Stable Departure-Patient Inst. Decision time for Depature: 22:00 (BRADLEY JACOB) Referrals: SAMIR GONSALES DO (PCP/Family) Primary Care Physician Patient Instructions: Cellulitis (Skin Infection), Adult (DC) Scripts Cephalexin (Cephalexin) 500 Mg Tablet 500 MG PO QID for 7 Days, #28 TAB Prov: BRADLEY JACOB 11/22/22 ATTENDING PHYSICIAN NOTE: I was physically present as attending physician in the emergency department during the care of this patient, but I was not directly involved in the decision making or delivery of care for this patient. (EZ WHITAKER MD) BRADLEY JACOB Nov 22, 2022 21:11 EZ WHITAKER MD Nov 23, 2022 00:53
[2022-11-22 21:19] LABS: BASOPHILS % (AUTO) 1 % (0-10); EOSINOPHILS # (AUTO) 0.1 10^3/uL (0.0-0.3); EOSINOPHILS % (AUTO) 1 % (0-10); HEMOGLOBIN 16.3 g/dL (13.3-17.7); MONOCYTES # (AUTO) 0.7 10^3/uL (0.0-1.0)
[2022-11-22 21:20] LABS: HEMATOCRIT 46 % (40-54); LYMPHOCYTES # (AUTO) 1.7 10^3/uL (1.0-4.0); LYMPHOCYTES % (AUTO) 27 % (12-44); MEAN CORPUSCULAR HEMOGLOBIN 37 pg (25-34); MEAN CORPUSCULAR HGB CONC 35 g/dL (32-36); MEAN CORPUSCULAR VOLUME 104 fL (80-99); MEAN PLATELET VOLUME 9.1 fL (9.0-12.2); MONOCYTES % (AUTO) 11 % (0-12); NEUTROPHILS # (AUTO) 3.8 10^3/uL (1.8-7.8); NEUTROPHILS % (AUTO) 60 % (42-75); PLATELET COUNT 94 10^3/uL (130-400); WHITE BLOOD COUNT 6.2 10^3/uL (4.3-11.0)
[2022-11-22] MEDS ORDERED: HOLD METFORMIN - RECEIVED CONTRAST 20 ML VIAL IV SCH (21:30)
[2022-11-22] MEDS ORDERED: IOHEXOL 350 MG/ML 100 ML (OMNIPAQUE 350) VIAL IV ONE (21:30)
[2022-11-22] MEDS ORDERED: NS 100 ML (IVPB) BAG IV ONE (21:30)
[2022-11-22 21:33] LABS: SMEAR SCAN COMMENT YES
[2022-11-22 21:38] LABS: ALBUMIN 3.9 GM/DL (3.2-4.5); BILIRUBIN,TOTAL 0.7 MG/DL (0.1-1.0); CALCIUM 9.2 MG/DL (8.5-10.1); CREATININE SERUM 0.92 MG/DL (0.60-1.30); POTASSIUM 3.5 MMOL/L (3.6-5.0); TOTAL PROTEIN 6.6 GM/DL (6.4-8.2)
--- NOTE | 2022-11-22 21:52 | Diagnostic Imaging Report ---
PROCEDURE: CT abdomen and pelvis with contrast. TECHNIQUE: Multiple contiguous axial images were obtained through the abdomen and pelvis after administration of intravenous contrast. Auto Exposure Controls were utilized during the CT exam to meet ALARA standards for radiation dose reduction. All CT scans use one or more of the following dose optimizing techniques: automated exposure control, MA and/or KvP adjustment based on patient size and exam type or iterative reconstruction. INDICATION: 57-year-old male presents with redness and clear discharge coming from surgical site from a recent umbilical hernia repair. COMPARISONS: None. FINDINGS: Lung bases show some discoid type atelectatic infiltrates in the lower lobes, right greater than left, but no confluent consolidations. There is no effusion or pneumothorax. Cardiac contour is normal. Liver shows uniform attenuation. Gallbladder, spleen, GE junction, stomach and duodenal sweep are unremarkable. Pancreas shows sharp margins. Adrenals are normal. Kidneys appear normal in size, position and contour. There is a nonobstructing 7 mm stone in a midpole calyx of the right kidney. A second 4 mm stone in an adjacent midpole calyx is also noted. A 3 mm nonobstructing stone in an upper pole of left kidney is noted. There is no hydronephrosis or hydroureter. Both ureters are seen intermittently through their course and appear unremarkable. Filled bladder is also normal. Nonopacified loops of small bowel are normal. There is a moderate amount of fecal load in the colon up to the proximal transverse colon. The distal transverse colon is moderately distended with gas as is the descending and sigmoid colon. Consistent with the patient's history, there is some stranding seen in the midabdomen. There is also trace gas/air within the left rectus sheath from the recent hernia repair. There is a fat-containing umbilical hernia with a fascial defect of approximately 8 mm. This appears to be incarcerated but not strangulated. No fluid collection is seen. IMPRESSION: 1. No evidence of cholecystitis, appendicitis or obstructive uropathy. No areas of peritoneal inflammation seen. 2. Nonobstructing bilateral renal calculi with measurements given above. 3. Postoperative changes from a recent hernia repair noted. There are subtle pockets of gas in the left rectus sheath as well as the peribuccal subcutaneous soft tissues. 4. There is a small fat-containing umbilical hernia with an 8 mm fascial defect. This appears to be incarcerated but not definitely strangulated but may be the source the patient's symptomatology. Correlate clinically. Dictated by: Dictated on workstation # [id number]
[2022-11-22] MEDS ORDERED: CEPHALEXIN 250 MG (KEFLEX) CAP PO STA (22:00)
[2022-11-22] MEDS ORDERED: CEPH500T PO (22:01)
[2022-11-22 22:07] VITALS: BP 151/82
== END 2022-11-22 22:11 | disposition home or self-care (01) ==
LOC: EDUNIT# 20:17 → ER 20:19
DX: K42.9 Umbilical hernia without obstruction or gangrene (principal); E87.6 Hypokalemia; R73.9 Hyperglycemia, unspecified; R74.8 Abnormal levels of other serum enzymes; F17.200 Nicotine dependence, unspecified, uncomplicated; Z98.890 Other specified postprocedural states
CPT/HCPCS: 36415; 74177; 80053; 85025